=== PATIENT | female | born 1995 | race Two or more races ===

== ENCOUNTER 2024-10-01 21:24 | Inpatient (IN) | payer MEDICAID ==
[~2024-10-01] VITALS: Ht 162.6 cm; Wt 61.0 kg
[2024-10-01 23:50] VITALS: PULSE 98; RESP 12; O2SAT 97
[2024-10-02] MEDS: SODIUM CHLORIDE 0.9% 1,000 ML IV ONE ×3 (00:08→08:56)
[2024-10-02] MEDS: LORazepam 2MG/ML-1ML VIAL IV ONE ×3 (01:17→08:57)
[2024-10-02] MEDS: chlordiazePOXIDE HCL 25 MG CAP PO ONE (01:17)
[2024-10-02 05:05] LABS: Urine Bacteria None Seen /hpf (None Seen)
[2024-10-02 05:13] LABS: Anion Gap 12 (5-15); BUN/Creatinine Ratio 5.5 (10.0-20.0); Blood Alcohol 6.1 mg/dL (<10); Calcium 9.9 mg/dL (8.7-10.4); Carbon Dioxide 22 mmol/L (20-31); Chloride 103 mmol/L (98-107); Potassium 3.8 mmol/L (3.5-5.1); Sodium 137 mmol/L (136-145)
[2024-10-02 05:14] LABS: Blood Urea Nitrogen 5 mg/dL (9-23); Glucose 240 mg/dL (74-106)
[2024-10-02 05:15] LABS: Urine Blood Negative /uL (Negative); Urine Clarity Turbid (Clear); Urine Color Yellow (Yellow); Urine Mucus FEW (None Seen); Urine Protein, UAD 1+ (Negative); Urine Specific Gravity 1.026 (1.001-1.035); Urine Squamous Epithelial Cell MOD /hpf (<5); Urine Urobilinogen Normal (Negative); Urine WBC 4 /HPF (0-5); Urine pH 6.5 (5.0-9.0)
[2024-10-02 05:16] LABS: Basophils # (auto) 0.1 10 ^3/uL (0-0.2); Eosinophils # (auto) 0.2 10 ^3/uL (0-0.8); Eosinophils % (auto) 1.4 % (0.0-7.0); Hematocrit 41.7 % (36.0-46.0); Hemoglobin 14.3 g/dL (12.2-16.2); Lymphocytes # (auto) 2.9 10 ^3/uL (0.4-5.4); Lymphocytes % (auto) 24.1 % (10.0-50.0); Mean Corpuscular Hemoglobin 33.4 pg (28.0-32.0); Mean Corpuscular Hgb Conc. 34.3 g/dL (32.0-36.0); Mean Corpuscular Volume 97.2 fL (80.0-100.0); Monocytes # (auto) 0.9 10 ^3/uL (0-1.3); Monocytes % (auto) 7.3 % (0.0-12.0); Neutrophils % (auto) 66.2 % (37.0-80.0); Platelet Count (auto) 339 10^3/uL (140-450); Red Blood Cells 4.29 10^6/uL (4.0-5.20); Red Cell Distribution Width 13.3 % (11.8-14.3); White Blood Cell 12.1 10^3/uL (4.4-10.8)
--- NOTE | 2024-10-02 05:44 | ED.PDOC ---
History of Present Illness HPI Comments 29 y/o F, with a history of DM and alcohol abuse, presents with c/o alcohol withdrawal symptoms, today. Patient endorses on sudden onset of tremors, cold sweats, palpitations, nausea, abdominal pain, and anxiety, this morning, after drinking a "couple of beers," earlier. She reports consuming "12x beers/day" for the past "3x years." Denies any vomiting, auditory or visual hallucinations, shortness of breath, chest pain, or other associated symptoms at this time. 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 OF [employer]ARD Hx Family History Family History: Unknown Social History Smoker: Other (nicotine vape) Alcohol: Heavy Drugs: Denies Drug Use Lives In: Home All Other Systems: Reviewed and Negative (Comprehensive review of systems are negative unless otherwise stated above or in HPI) Physical Exam General Appearance: No Apparent Distress, Normal HEENT: Pharynx Normal, TMs Normal, Other (tongue fasciculations, otherwise johnny HEENT exam ) Neck: Full Range of Motion, Non-Tender, Normal, Normal Inspection Respiratory: Chest Non-Tender, Lungs Clear, No Accessory Muscle Use, No Respiratory Distress, Normal Breath Sounds Cardiovascular: No Edema, No JVD, No Murmur, No Gallop, Normal Peripheral Pulses, Tachycardia, Other (regular rhythm) Breast Exam: Deferred Gastrointestinal: No Organomegaly, Non Tender, No Pulsatile Mass, Normal Bowel Sounds, Soft Genitalia: Deferred Pelvic: Deferred Rectal: Deferred Extremities: No calf tenderness, Normal capillary refill, Normal inspection, Normal range of motion, Non-tender, No pedal edema Musculoskeletal : Apperance: Normal Neurologic: Alert, 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 Was a procedure done?: No EKG EKG : Pulse Rate (adult): 147 [place]: Normal Cardiac Rhythm: ST Block: None Hypertrophy: None ST: Normal Differential Dx Considerations may include: alcohol withdrawal, substance abuse, substance dependency, delirium tremens, tachycardia, among others X-Ray, Labs, Meds, VS Vital Signs Date Time Temp Pulse Resp B/P (MAP) Pulse Ox O2 Delivery O2 Flow Rate FiO2 10/02/24 05:44 147 10/02/24 05:00 111 12 107/62 (77) 98 10/02/24 04:00 116 11 98/51 (67) 97 10/02/24 03:00 120 15 102/61 (75) 98 10/02/24 02:00 123 14 108/61 (77) 97 10/02/24 01:00 105 13 114/62 (79) 99 10/01/24 23:50 98 12 97 Room Air* 0 21 10/01/24 23:50 98.3 98 12 109/55 (73) 97 98.3 10/01/24 23:40 147 10/01/24 23:24 99.3 156 20 129/81 (97) 98 99.3 Lab Test 10/02/24 00:28 10/02/24 00:00 Range/Units Urine Color Yellow Yellow Urine Clarity Turbid H Clear Urine pH 6.5 5.0-9.0 Urine Specific [place] 1.026 1.001-1.035 Urine Protein 1+ H Negative Urine Ketones 4+ H Negative Urine Blood Negative Negative /uL Urine Nitrite Negative Negative Urine Bilirubin Negative Negative Urine Urobilinogen Normal Negative mg/dL Urine Leukocyte Esterase Negative Negative /uL Urine RBC 3 0 - 4 /hpf Urine Microscopic WBC 4 0-5 /HPF Urine Squamous Epithelial Cells Mod <5 /hpf Urine Bacteria None seen None Seen /hpf Urine Mucus Few None Seen Urine Glucose 3+ H Normal mg/dL Urine Test Negative Negative White Blood Count 12.1 H 4.4-10.8 10^3/uL Red Blood Count 4.29 4.0-5.20 10^6/uL Hemoglobin 14.3 12.2-16.2 g/dL Hematocrit 41.7 36.0-46.0 % Mean Corpuscular Volume 97.2 80.0-100.0 fL Mean Corpuscular Hemoglobin 33.4 H 28.0-32.0 pg Mean Corpuscular Hemoglobin Concent 34.3 32.0-36.0 g/dL Red Cell Distribution Width 13.3 11.8-14.3 % Platelet Count 339 140-450 10^3/uL Mean Platelet Volume 8.7 6.9-10.8 fL Neutrophils (%) (Auto) 66.2 37.0-80.0 % Lymphocytes (%) (Auto) 24.1 10.0-50.0 % Monocytes (%) (Auto) 7.3 0.0-12.0 % Eosinophils (%) (Auto) 1.4 0.0-7.0 % Basophils (%) (Auto) 1.0 0.0-2.0 % Neutrophils # (Auto) 8.0 1.6-8.6 10 ^3/uL Lymphocytes # (Auto) 2.9 0.4-5.4 10 ^3/uL Monocytes # (Auto) 0.9 0-1.3 10 ^3/uL Eosinophils # (Auto) 0.2 0-0.8 10 ^3/uL Basophils # (Auto) 0.1 0-0.2 10 ^3/uL Nucleated Red Blood Cells 0.0 % Sodium Level 137 136-145 mmol/L Potassium Level 3.8 3.5-5.1 mmol/L Chloride Level 103 98-107 mmol/L Carbon Dioxide Level 22 20-31 mmol/L Anion Gap 12 5-15 Blood Urea Nitrogen 5 L 9-23 mg/dL Creatinine 0.91 0.550-1.02 mg/dL Glomerular Filtration Rate Calc 88 >90 mL/min BUN/Creatinine Ratio 5.5 L 10.0-20.0 Serum Glucose 240 H 74-106 mg/dL Calcium Level 9.9 8.7-10.4 mg/dL Plasma/Serum Blood Alcohol 6.1 <10 mg/dL Current Medications Medications (Trade) Dose Ordered Sig/Eligio Route Start Time Stop Time Status Last Admin Chlordiazepoxide HCl (Librium Capsule) 25 mg ONCE ONCE PO 10/02/24 05:00 10/02/24 05:06 DC 10/02/24 01:17 Lorazepam (Ativan Inj) 1 mg ONCE ONCE IV 10/02/24 05:00 10/02/24 05:06 DC 10/02/24 01:17 Sodium Chloride 1,000 ml @ 1,000 mls/hr Q1H ONCE IV 10/02/24 05:00 10/02/24 05:59 10/02/24 00:08 Sodium Chloride 1,000 ml @ 1,000 mls/hr Q1H ONCE IV 10/02/24 05:00 10/02/24 05:59 10/02/24 02:24 Lorazepam (Ativan Inj) 2 mg ONCE ONCE IV 10/02/24 05:45 10/02/24 05:46 10/02/24 05:44 Time of 1ST Reevaluation: 02:20 Reevaluation 1ST: Unchanged Patient Education/Counseling: Diagnosis, Treatment Family Education/Counseling: No Family Present Additional Information Previous visit documents reviewed: n/a The following tests were ordered, and results were reviewed by me: UA, urine test, blood alcohol, CBC, BMP, EKG Additional Information was gathered from interviewing the following independent historians: n/a I reviewed and agreed with the following test results read by other providers: n/a I discussed treatment and results with medical personnel and: Patient Comprehensive systems review obtained and negative except for what is stated in the HPI. Departure 1 Departure Time of Disposition: 05:46 (Patient went signs of acute alcohol withdrawal. We will empirically treat patient with benzodiazepines and admit patient for further workup) Impression: Primary Impression: Alcohol withdrawal Qualified Codes: F10.930 - Alcohol use, unspecified with withdrawal, uncomplicated Disposition: ADMITTED INPATIENT Admit to: Med Surg Condition: Serious Critical Care Note Critical Care Time?: Yes Critical care comment: Alcohol withdrawal Authorized and Performed by: Blayne Osei MD Total critical care time: Approximately 38 minutes Due to a high probability of clinically significant, life threatening deterioration, the patient required my highest level of preparedness to intervene emergently and I personally spent this critical care time directly and personally managing the patient. This critical care time included obtaining a history; examining the patient; pulse oximetry; ordering and review of studies; arranging urgent treatment with development of a management plan; evaluation of patient's response to treatment; frequent reassessment; and, discussions with other providers. This critical care time was performed to assess and manage the high probability of imminent, life-threatening deterioration that could result in multi-organ failure. It was exclusive of separately billable procedures and treating other patients and teaching time. Please see my other sections and the rest of the note for further information on patient assessment and treatment. Stability Stability form required: No Heart Score Heart Score: Heart Score Response (Comments) Value History N/A 0 EKG N/A 0 Age N/A 0 Risk Factors N/A 0 Troponin N/A 0 Total 0 I personally scribed for BLAYNE OSEI MD ([email or web address]) on 10/02/24 at 05:44. Electronically submitted by Hank Muro ([email or web address]). BLAYNE OSEI MD Oct 02, 2024 05:44
[2024-10-02] MEDS ORDERED: INSU100I27 SC (07:58)
[2024-10-02] MEDS ORDERED: OMEP1CAP70 PO (07:58)
[2024-10-02] MEDS ORDERED: INSU1INJ19 SC (07:58)
[2024-10-02 08:00] VITALS: PULSE 124; RESP 20; O2SAT 97
[2024-10-02] MEDS ORDERED: DOCUSATE SOD 100 MG CAP PO PRN (08:00)
[2024-10-02] MEDS ORDERED: LORazepam 2MG/ML-1ML VIAL IV PRN (08:00)
[2024-10-02] MEDS ORDERED: DEXTROSE (50%) 50ML SYRG IV PRN (08:00)
[2024-10-02] MEDS ORDERED: NITROGLYCERIN 0.4 MG SL TAB SL PRN (08:00)
[2024-10-02] MEDS ORDERED: MORPHINE SULFATE INJ 2 MG/ml SYRG IV PRN (08:00)
[2024-10-02] MEDS ORDERED: HYDROcodone-ACET 5/325MG TAB PO PRN (08:00)
[2024-10-02] MEDS ORDERED: ACETAMINOPHEN 325 MG TAB PO PRN (08:00)
--- NOTE | 2024-10-02 08:14 | DVHHP2 ---
History of Present Illness Reason for Visit: Alcohol withdrawal History of Present Illness Rosy Schaeffer V is a 29-year-old female with past medical history of diabetes and ETOH dependance, who came in for alcohol withdrawal. Patient states she had made the choice to quite drinking the beginning of this week. She states she usu ally drinks about 12 beers/day. On Monday she drank 10, then on Monday she only had a few sips due to vomiting it back up. Her alcohol withdrawal symptoms had began prompting her to come to the hospital. She began having nausea, vomiting, tachycardia, and tremors. Endocrine: Diabetes Past Surgical History: None Smoke: <1 pack per day (Vape) ALCOHOL: heavy Drugs: None Lives: with Family Domestic Violence: Neg Review of Systems Constitutional: Yes: Other (Alcohol withdrawal); No: Fever, Chills, Sweats, Weakness, Malaise ENT: No: Ear pain, Ear discharge, Nose pain, Nose discharge, Nose congestion, Mouth pain, Mouth swelling, Throat pain, Throat swelling, Other Respiratory: No: Cough, Dry, Shortness of breath, SOB with excertion, Wheezing, Hemoptysis, Pleuritic Pain, Sputum, Wheezing, Other Cardiovascular: No: Chest Pain, Palpitations, Orthopnea, Paroxysmal Noc. Dysp brenden, Edema, Lt Headedness, Other Gastrointestinal: Nausea, Vomiting; No: Abdominal Pain, Diarrhea, Constipation, Melena, Hematochezia, Other Genitourinary: No Dysuria, No Frequency, No Incontinence, No Hematuria, No Retention, No Other Musculoskeletal: No: other, neck pain, shoulder pain, arm pain, back pain, hand pain, leg pain, foot pain Skin: No: Rash, Lesions, Jaundice, Bruising, Other Neurological: No: Weakness, Numbness, Incoordination, Change in speech, Confusion, Seizures, Other Allergies: Coded Allergies: NO KNOWN ALLERGIES (Unverified , 10/02/24) Exam Vital Signs Vital Signs Date Time Temp Pulse Resp B/P (MAP) Pulse Ox O2 Delivery O2 Flow Rate FiO2 10/02/24 07:00 117 15 99/56 (70) 97 10/01/24 23:50 Room Air* 0 21 10/01/24 23:50 98.3 98.3 General Appearance: Alert, Oriented X3, Cooperative, moderate distress HEENT: Atraumatic, PERRLA Respiratory: Clear to auscultation, Normal air movement Cardiovascular: Normal S1, Normal S2, Other (Tachycardia) Abdominal: Normal bowel sounds, Soft, No tenderness, No hepatospenomegaly Extremities: No clubbing, No cyanosis, No edema, Normal pulses, No tenderness/swelling Skin: No rashes, No breakdown, No significant lesion Neuro: Normal gait, Normal speech, Strength at 5/5 X4 ext, Normal tone, Other (tremors) Psych/Mental Status: Mental status NL, Mood NL Labs/Xrays Labs Test 10/02/24 00:28 10/02/24 00:00 Range/Units Urine Color Yellow Yellow Urine Clarity Turbid H Clear Urine pH 6.5 5.0-9.0 Urine Specific [place] 1.026 1.001-1.035 Urine Protein 1+ H Negative Urine Ketones 4+ H Negative Urine Blood Negative Negative /uL Urine Nitrite Negative Negative Urine Bilirubin Negative Negative Urine Urobilinogen Normal Negative mg/dL Urine Leukocyte Esterase Negative Negative /uL Urine RBC 3 0 - 4 /hpf Urine Microscopic WBC 4 0-5 /HPF Urine Squamous Epithelial Cells Mod <5 /hpf Urine Bacteria None seen None Seen /hpf Urine Mucus Few None Seen Urine Glucose 3+ H Normal mg/dL Urine Test Negative Negative White Blood Count 12.1 H 4.4-10.8 10^3/uL Red Blood Count 4.29 4.0-5.20 10^6/uL Hemoglobin 14.3 12.2-16.2 g/dL Hematocrit 41.7 36.0-46.0 % Mean Corpuscular Volume 97.2 80.0-100.0 fL Mean Corpuscular Hemoglobin 33.4 H 28.0-32.0 pg Mean Corpuscular Hemoglobin Concent 34.3 32.0-36.0 g/dL Red Cell Distribution Width 13.3 11.8-14.3 % Platelet Count 339 140-450 10^3/uL Mean Platelet Volume 8.7 6.9-10.8 fL Neutrophils (%) (Auto) 66.2 37.0-80.0 % Lymphocytes (%) (Auto) 24.1 10.0-50.0 % Monocytes (%) (Auto) 7.3 0.0-12.0 % Eosinophils (%) (Auto) 1.4 0.0-7.0 % Basophils (%) (Auto) 1.0 0.0-2.0 % Neutrophils # (Auto) 8.0 1.6-8.6 10 ^3/uL Lymphocytes # (Auto) 2.9 0.4-5.4 10 ^3/uL Monocytes # (Auto) 0.9 0-1.3 10 ^3/uL Eosinophils # (Auto) 0.2 0-0.8 10 ^3/uL Basophils # (Auto) 0.1 0-0.2 10 ^3/uL Nucleated Red Blood Cells 0.0 % Sodium Level 137 136-145 mmol/L Potassium Level 3.8 3.5-5.1 mmol/L Chloride Level 103 98-107 mmol/L Carbon Dioxide Level 22 20-31 mmol/L Anion Gap 12 5-15 Blood Urea Nitrogen 5 L 9-23 mg/dL Creatinine 0.91 0.550-1.02 mg/dL Glomerular Filtration Rate Calc 88 >90 mL/min BUN/Creatinine Ratio 5.5 L 10.0-20.0 Serum Glucose 240 H 74-106 mg/dL Calcium Level 9.9 8.7-10.4 mg/dL Plasma/Serum Blood Alcohol 6.1 <10 mg/dL Assessment/Plan Assessment/Plan Assessment: Alcohol withdrawal, Diabetes, Leukocytosis, Plan: Admit to Tele, CIDC protocol, Librium tapering dose, PO supplements, IV hydration, Home medications reconciled, Social service consult, Plan discussed with: Patient My Orders Orders - BOSTON CARDENAS Procedure Category Date Status Time Admit ADMIT 10/02/24 Transmitted 07:54 Code Status CODE 10/02/24 Transmitted 07:54 Hydrocodone-Acet PHA 10/02/24 Transmitted 5/325mg Tab ([place] 08:00 Ondansetron Hcl PHA 10/02/24 Transmitted (Zofran) 08:00 Docusate Sodium PHA 10/02/24 Transmitted Capsule (Colace 08:00 Complete Blood Count LAB 10/03/24 Verified 04:00 Comprehensive LAB 10/03/24 Verified Metabolic Panel 04:00 Condition: Critical ALEXY 10/02/24 Transmitted 07:54 Acetaminophen Tablet PHA 10/02/24 Transmitted (Tylenol Tablet) 08:00 Nitroglycerin PHA 10/02/24 Transmitted Sublingual (Ntrostat 08:00 Morphine Sulfate PHA 10/02/24 Transmitted Injection 08:00 Stat Ekg For Chest ALEXY 10/02/24 Transmitted Pain 07:54 Notify Of Changes ALEXY 10/02/24 Transmitted From Base 07:54 Educational Resource Coordinator For ALEXY 10/02/24 Transmitted 24 Hours 07:54 Emergency Dysrhythmia ALEXY 10/02/24 Transmitted Protocol 07:54 Rhythm Strips Once ALEXY 10/02/24 Transmitted Every Shift 07:54 Oxygen By Nasal RT 10/02/24 Transmitted Cannula 07:54 Librium 50mg Po Q8hr PHA 10/02/24 Transmitted Day 1 08:00 Librium 50mg Po Q12hr PHA 10/03/24 Transmitted Day 2 10:00 Librium 25mg Po Q12hr PHA 10/04/24 Transmitted X Day 3 10:00 Librium 25mg Po Qam PHA 10/05/24 Transmitted Day 4 07:00 Magnesium LAB 10/02/24 Transmitted 07:54 Thiamine 100mg Po PHA 10/02/24 Transmitted Daily 10:00 Folic Acid 1mg Po PHA 10/02/24 Transmitted Daily 10:00 Mvi Tablet Po Daily PHA 10/02/24 Transmitted 10:00 Ativan 1mg Iv Stat PHA 10/02/24 Transmitted 08:00 Ativan 1mg Iv Q6hr Atc PHA 10/02/24 Transmitted 08:00 Ativan 1mg Iv Q2hr Prn PHA 10/02/24 Transmitted 08:00 Etoh Withdrawal ALEXY 10/02/24 Transmitted Assessment 07:54 Etoh Withdrawal ALEXY 10/02/24 Transmitted Assessment 07:54 Seizure Precautions ALEXY 10/02/[address] 07:54 NS PHA 10/02/24 Transmitted 08:00 Glucose Blood PHA 10/02/24 Transmitted (Accu-Chek Comfort 11:30 Bedtime Insulin Scale PHA 10/02/24 Transmitted 22:00 Moderate Insulin Ss PHA 10/02/24 Transmitted 11:30 Dextrose 50% Syringe PHA 10/02/24 Transmitted 08:00 Regular Diet DIET 10/02/24 Transmitted Breakfast Date of Service: Oct 02, 2024 Billing Provider: BOSTON CARDENAS Common Visit Codes: [id number] INP/OBS CARE (MOD) BOSTON CARDENAS Oct 02, 2024 08:14
[2024-10-02] MEDS: chlordiazePOXIDE HCL 25 MG CAP PO SCH (08:56)
[2024-10-02] MEDS: THIAMINE HCL 100 MG TAB PO SCH (08:56)
[2024-10-02] MEDS: ONDANSETRON HCL 4 MG/2 ML VIAL IV PRN (08:56)
[2024-10-02] MEDS: FOLIC ACID 1 MG TAB PO SCH (08:56)
[2024-10-02] MEDS: MULTIPLE VITAMIN TAB PO SCH (08:57)
[2024-10-02] MEDS: LORazepam 2MG/ML-1ML VIAL IV SCH (08:58)
[2024-10-02] MEDS: ACCU-CHEK COMFORT CURVE STRIP VI SCH (11:39)
[2024-10-02] MEDS: InsuLIN REG 1unit/0.01ml Soln (100units/ml) SC SCH (12:23)
--- NOTE | 2024-10-02 15:55 | DVHPN2 ---
Assessment/Plan Assessment/Plan Progress note 29 yo F with alcohol use and IDDM admitetd for alcohol withdrawal Seen by me today during rounds, CIWA 0 on time of assessment Physical exam Alert oriented x3 tongue midline, mucous membrane moist, no tremor clear breath sound s1 s2 rrr no murmur abdomen soft nontender no le edema labs ekg imaging reviewed assessment and plan alcohol use alcohol withdrawal IDDM nicotine use CIWA protocol librium taper high dose thiamine and folate iv hydration refused resources for alcohol use reinforce abstinance resume home lantus lispro + ISS tobacco cessation discussed, NRT diet regular dvt ppx ambulatory Plan discussed with: Patient Date of Service: Oct 02, 2024 Billing Provider: ANDREW EMERSON MD Common Visit Codes: 53857-TNF/OBS SAME DATE (HIGH) Secondary Visit Codes: 97620-[id number] COUNSELING IND, 12029-LDEOZ CHNG SMOKING >10MIN ANDREW EMERSON MD Oct 02, 2024 15:55
[2024-10-02] MEDS ORDERED: InsuLIN REG 1unit/0.01ml Soln (100units/ml) SC SCH (22:00)
[2024-10-02] MEDS: INSULIN LANTUS (GLARGINE) 1 /0.01ml (100units/ml) SC SCH (22:23)
[2024-10-02] MEDS: SODIUM CHLORIDE 0.9% 1,000 ML IV SCH (22:24)
[2024-10-03 01:00] VITALS: BP 96/46; PULSE 85; RESP 18; TEMP 98.1; O2SAT 96
[2024-10-03 05:00] VITALS: BP 101/56; PULSE 86; RESP 17; TEMP 98; O2SAT 97
[2024-10-03 05:52] LABS: Basophils # (auto) 0 10 ^3/uL (0-0.2); Basophils % (auto) 0.6 % (0.0-2.0); Eosinophils # (auto) 0.2 10 ^3/uL (0-0.8); Eosinophils % (auto) 3.1 % (0.0-7.0); Hematocrit 38.7 % (36.0-46.0); Lymphocytes # (auto) 2.3 10 ^3/uL (0.4-5.4); Lymphocytes % (auto) 29.4 % (10.0-50.0); Mean Corpuscular Hemoglobin 32.7 pg (28.0-32.0); Mean Corpuscular Hgb Conc. 33.5 g/dL (32.0-36.0); Mean Corpuscular Volume 97.8 fL (80.0-100.0); Monocytes # (auto) 0.6 10 ^3/uL (0-1.3); Monocytes % (auto) 7.6 % (0.0-12.0); Neutrophils # (auto) 4.6 10 ^3/uL (1.6-8.6); Neutrophils % (auto) 59.3 % (37.0-80.0); Platelet Count (auto) 277 10^3/uL (140-450); Red Blood Cells 3.96 10^6/uL (4.0-5.20); Red Cell Distribution Width 13.2 % (11.8-14.3); White Blood Cell 7.7 10^3/uL (4.4-10.8)
[2024-10-03 06:18] LABS: Alanine Aminotransferase 10 U/L (7-40); Alkaline Phosphatase 65 U/L (46-116); Anion Gap 9 (5-15); Aspartate Aminotransferase 14 U/L (13-40); BUN/Creatinine Ratio 7.2 (10.0-20.0); Bilirubin, Total 1.2 mg/dL (0.2-1.0); Blood Urea Nitrogen 5 mg/dL (9-23); Calcium 9.2 mg/dL (8.7-10.4); Carbon Dioxide 22 mmol/L (20-31); Chloride 107 mmol/L (98-107); Glucose 198 mg/dL (74-106); Magnesium 1.9 mg/dL (1.6-2.6); Phosphorus 2.5 mg/dL (2.4-5.1); Potassium 3.8 mmol/L (3.5-5.1); Sodium 138 mmol/L (136-145); Total Protein 6.6 g/dL (5.7-8.2)
[2024-10-03] MEDS: INSULIN LISPRO (HUMAN) 100 UNITS/ML ML SC SCH (06:38)
[2024-10-03 08:00] VITALS: PULSE 97
[2024-10-03 08:41] VITALS: BP 104/64; PULSE 69; RESP 18; TEMP 98.3; O2SAT 99
--- NOTE | 2024-10-03 09:07 | ECG ---
[facility] Test Date: 2024-10-01 Test Time: 23:40:31 Pat Name: RENITA MOLINA Department: ER Room: [employer] [facility] Gender: F Wrapper And Preserver: ERIN : [id number] Requested By: EMERGENCY EMERGENCY Order Number: [id number] Reading MD: Charbel Mack Measurements Intervals [place] Rate: 147 P: 76 CA: 65 QRS: 65 QRSD: 83 T: -17 QT: 295 QTc: 462 Interpretive Statements Sinus tachycardia Borderline repolarization abnormality Electronically Signed On 10-03-2024 14:07:05 PDT by Charbel Mack Please click the below link to view image of tracing.
[2024-10-03] MEDS: chlordiazePOXIDE HCL 25 MG CAP PO SCH (09:49)
[2024-10-03] MEDS: PANTOPRAZOLE 40 MG TAB PO SCH (09:49)
[2024-10-03] MEDS: THIAMINE 100mg/ml INJ (200mg/2ml VIAL) IV SCH (09:50)
[2024-10-03] MEDS ORDERED: FOLIC ACID 1 MG in D5W 5% 50 ML INJ SCH (10:00)
[2024-10-03] MEDS: FOLIC ACID 1 MG TAB PO ONE (10:15)
[2024-10-03] MEDS ORDERED: CHL25C GT (11:39)
--- NOTE | 2024-10-03 11:45 | DVHDS2 ---
Discharge Summary Date of Admission Oct 02, 2024 at 07:54 Date of Discharge: Oct 03, 2024 Labs/Diagnostic Data: Laboratory Results Test 10/03/24 10:59 10/03/24 04:49 10/02/24 00:28 10/02/24 00:00 POC Glucose 226 mg/dl (70-106) White Blood Count 7.7 10^3/uL (4.4-10.8) Red Blood Count 3.96 10^6/uL (4.0-5.20) Hemoglobin 13.0 g/dL (12.2-16.2) Hematocrit 38.7 % (36.0-46.0) Mean Corpuscular Volume 97.8 fL (80.0-100.0) Mean Corpuscular Hemoglobin 32.7 pg (28.0-32.0) Mean Corpuscular Hemoglobin Concent 33.5 g/dL (32.0-36.0) Red Cell Distribution Width 13.2 % (11.8-14.3) Platelet Count 277 10^3/uL (140-450) Mean Platelet Volume 8.1 fL (6.9-10.8) Neutrophils (%) (Auto) 59.3 % (37.0-80.0) Lymphocytes (%) (Auto) 29.4 % (10.0-50.0) Monocytes (%) (Auto) 7.6 % (0.0-12.0) Eosinophils (%) (Auto) 3.1 % (0.0-7.0) Basophils (%) (Auto) 0.6 % (0.0-2.0) Neutrophils # (Auto) 4.6 10 ^3/uL (1.6-8.6) Lymphocytes # (Auto) 2.3 10 ^3/uL (0.4-5.4) Monocytes # (Auto) 0.6 10 ^3/uL (0-1.3) Eosinophils # (Auto) 0.2 10 ^3/uL (0-0.8) Basophils # (Auto) 0 10 ^3/uL (0-0.2) Nucleated Red Blood Cells 0.0 % Sodium Level 138 mmol/L (136-145) Potassium Level 3.8 mmol/L (3.5-5.1) Chloride Level 107 mmol/L (98-107) Carbon Dioxide Level 22 mmol/L (20-31) Anion Gap 9 (5-15) Blood Urea Nitrogen 5 mg/dL (9-23) Creatinine 0.69 mg/dL (0.550-1.02) Glomerular Filtration Rate Calc 121 mL/min (>90) BUN/Creatinine Ratio 7.2 (10.0-20.0) Serum Glucose 198 mg/dL (74-106) Calcium Level 9.2 mg/dL (8.7-10.4) Phosphorus Level 2.5 mg/dL (2.4-5.1) Magnesium Level 1.9 mg/dL (1.6-2.6) Total Bilirubin 1.2 mg/dL (0.2-1.0) Aspartate Amino Transferase (AST) 14 U/L (13-40) Alanine Aminotransferase (ALT) 10 U/L (7-40) Alkaline Phosphatase 65 U/L (46-116) Total Protein 6.6 g/dL (5.7-8.2) Albumin 4.0 g/dL (3.2-4.8) Urine Color Yellow (Yellow) Urine Clarity Turbid (Clear) Urine pH 6.5 (5.0-9.0) Urine Specific [place] 1.026 (1.001-1.035) Urine Protein 1+ (Negative) Urine Ketones 4+ (Negative) Urine Blood Negative /uL (Negative) Urine Nitrite Negative (Negative) Urine Bilirubin Negative (Negative) Urine Urobilinogen Normal mg/dL (Negative) Urine Leukocyte Esterase Negative /uL (Negative) Urine RBC 3 /hpf (0 - 4) Urine Microscopic WBC 4 /HPF (0-5) Urine Squamous Epithelial Cells Mod /hpf (<5) Urine Bacteria None seen /hpf (None Seen) Urine Mucus Few (None Seen) Urine Glucose 3+ mg/dL (Normal) Urine Test Negative (Negative) Hemoglobin A1c 6.8 % A1C (<5.7) Plasma/Serum Blood Alcohol 6.1 mg/dL (<10) Other Laboratory Tests 10/03/24 04:49 Brief Hx & Hospital Course: 29 yo F with past medical history of IDDM and ETOH dependance, who came in for alcohol withdrawal. Patient states she had made the choice to quite drinking the beginning of this week. She states she usually drinks about 12 beers/day. On Monday she drank 10, then on Monday she only had a few sips due to vomiting it back up. Her alcohol withdrawal symptoms had began prompting her to come to the hospital. She began having nausea, vomiting, tachycardia, and tremors. Able to tolerate food, on librium taper, stable to dc home. Resume basal bolus insulin Condition at Discharge: Good Final Diagnosis/Problems List alcohol use IDDM alcohol withdrawal Discharge Disposition: Home Discharge Instruct/Medications Diet: Consistent carbohydrate, Cardiac 2g Na,low cholest Activity: No Restrictions, As Tolerated Follow Up/Referral: PCP Medications: librium take as directed 39 Discharge Statement: "Patient was advised to return to the ER or call 911 if any headaches, dizziness, shortness of breath, chest pain, abdominal pain, bleeding, fevers, or worsening of medical condition. Patient was counseled about treatment plan, medications, possible side effects, patientverbalized understanding. All questions were answered to the best of my ability. This discharge took greater then 30 minutes in planning, reviewing documentation, counseling the patient, and discussing with other team members." ASSESSMENT ASSESSMENT Assessment Date of Service: Oct 03, 2024 Billing Provider: ANDREW EMERSON MD Common Visit Codes: 96015-DBH/OBS DISCH DAY >30min ANDREW EMERSON MD Oct 03, 2024 11:45
[2024-10-04] MEDS ORDERED: FOLIC ACID 1 MG TAB PO SCH (10:00)
[2024-10-04] MEDS ORDERED: chlordiazePOXIDE HCL 25 MG CAP PO SCH (10:00)
[2024-10-05] MEDS ORDERED: chlordiazePOXIDE HCL 25 MG CAP PO SCH (07:00)
== END 2024-10-03 12:32 | disposition home or self-care (01) | DRG 775 ==
LOC: ER 21:24 → OVERFLOW 10-02 07:54 → TELE-WESTW 10-02 20:50
PROVIDERS: ADMIT Student in an Organized Health Care Education/Training Program; ATTEND Student in an Organized Health Care Education/Training Program
DX: F10.130 Alcohol abuse with withdrawal, uncomplicated (principal); D72.829 Elevated white blood cell count, unspecified; E11.9 Type 2 diabetes mellitus without complications; F17.290 Nicotine dependence, other tobacco product, uncomplicated; F41.9 Anxiety disorder, unspecified; R00.0 Tachycardia, unspecified; R25.1 Tremor, unspecified; Z79.4 Long term (current) use of insulin
CPT/HCPCS: 36415; 80048; 80053; 80320; 81001; 81025; 82962; 83036; 83735; 84100; 85025; 93005; 96361; 96372; 96374; 96375; 96376; 99291; G0378; J1815; J2405; J7060